=== PATIENT | female | born 1975 | race Caucasian/White ===

== ENCOUNTER 2023-09-09 20:15 | Emergency (ER) | payer OTHER, SELFPAY ==
[2023-09-09 20:19] VITALS: BP 151/101
[2023-09-09 21:49] LABS: COVID-19 Antigen Negative (Negative)
[2023-09-09 21:51] VITALS: BMI 29.0
--- NOTE | 2023-09-09 21:54 | EDRN ---
Pt reports fever that started 09/01 hat lasted 1.5 days, sore throat and chills. Yesterday had a pounding headache that lasted all day. Last took tylenol yesterday
[2023-09-09 22:01] VITALS: BP 138/77
[2023-09-09 22:10] LABS: % Basophils 0.5 % (0-2); % Eosinophils 5.4 % (0-6); % Immature Granulocytes 0.1 % (0-0.5); % Lymphocytes 28.5 % (20.5-51.1); % Monocytes 7.7 % (1.7-9.3); % Neutrophils 57.8 % (42.2-75.2); Absolute Eosinophils 0.5 10^3/uL (0-0.7); Absolute Lymphocytes 2.5 10^3/uL (1.2-3.4); Absolute Monocytes 0.7 10^3/uL (0.1-0.6); Absolute Neutrophils 5.1 10^3/uL (1.4-6.5); Hematocrit 35.4 % (37.0-47.0); Hemoglobin 11.1 g/dL (12.0-16.0); Mean Corp Hgb Conc. 31.4 g/dL (33.0-37.0); Mean Corpuscular Hgb 25.2 pg (27.0-31.0); Mean Corpuscular Volume 80.5 fL (81.0-99.0); Mean Platelet Volume 10.7 fL (7.4-10.4); Nucleated Red Blood Cells % 0 %; Platelet Count 239 10^3/uL (130-400); Red Cell Dist. Width 15.5 % (11.5-14.5); White Blood Cell Count 8.9 10^3/uL (4.8-10.8)
[2023-09-09 22:36] LABS: ALT (SGPT) 20 U/L (0-35); AST (SGOT) 26 U/L (14-36); Albumin 4.5 g/dl (3.5-5.0); Alkaline Phosphatase 72 U/L (38-126); Blood Urea Nitrogen 21 mg/dl (7-17); Calcium 9.4 mg/dl (8.4-10.2); Carbon Dioxide 22 mmol/L (22-30); Chloride 105 mmol/L (98-107); Estimated Creatinine Clearance 72 ml/min; Glucose 108 mg/dl (70-99); Potassium 4.4 mmol/L (3.5-5.1); Sodium 137 mmol/L (135-145); Total Bilirubin 0.2 mg/dl (0.2-1.3); Total Protein 7.2 g/dl (6.3-8.2); eGFR > 60.00
--- NOTE | 2023-09-09 22:48 | ED.GENMED ---
History of Present Illness
General
Chief Complaint: Cold/Flu/URI Symptoms
Source: patient
Exam Limitations: none
Time Seen by Provider: 09/09/23 22:36
Nursing documentation reviewed up to this point in time: agreed with
History of Present Illness
History of Present Illness:
This is a 48-year-old woman with history of migraines who complains of of 5-day history of URI symptoms, primarily sore throat, intermittent dry cough, subjective fever, generalized aches and intermittent headache. She admits to moderate migraine
headache yesterday accompanied with nausea which resolved with a dose of Tylenol and Nurtec ODT. No further headache today but she continues with moderate sore throat, painful swallowing and reports decreased oral intake over the past 5 days and
difficulty sleeping over the past 2 days. Her son had very similar URI symptoms last week.
She denies chest pain or shortness of breath.
Her last dose of Tylenol was yesterday.
She has had intermittent nausea but has had no vomiting, no abdominal pain, no back pain.
No recent travel. She denies rash.
She takes no medicines on a daily basis. Since onset of URI symptoms she has been taking vitamin C, vitamin D, intermittent Tylenol.
She reports no history of asthma nor chronic lung issues.
No history of immunocompromise.
Past History
Past History
ED Past Medical History: HTN (History of preeclampsia), Hypercholesterolemia, Psychiatric (Depression/anxiety) and Other (post Eclampsia, Migraines)
ED Past Surgical History: None
Social History
Tobacco: Non-smoker
Alcohol: None
Drug: None
Personal:
Living: with family
Employment: Not employed (Homemaker)
Family History
Family History: Other (Noncontributory)
Phy Exam
Physical Exam
Physical Exam:
GENERAL: 48-year-old woman appears her stated age, awake and alert, appears in no acute distress, nontoxic in appearance. Easily communicative. Vital signs reviewed. Afebrile. Moderate hypertension noted initially, has improved without
intervention
EYE: pupils equal and reactive. anicteric
NECK: Supple, nontender, no meningismus, no significant adenopathy.
ENT: posterior pharynx is very minimally injected without edema nor exudate nor ulcerations, there is mild clear to pearly postnasal drip noted. Oral mucosa is moist. TM clear b/l, nares have minimally boggy turbinates with scant clear rhinorrhea.
CARDIAC: Regular rate and rhythm. no murmur.
LUNGS: Clear breath sounds bilaterally, no acute respiratory distress, no wheezes/rales/rhonchi
ABDOMEN: Soft, nondistended, without focal tenderness, no r/g, no cvat. normoactive BS.
NEUROLOGICAL: Alert and oriented x3, no focal neuro deficits. Gait is steady.
SKIN: Warm and dry, normal color, skin intact. No rash.
MUSCULOSKELETAL: No C/C/E. peripheral pulses are full and equal b/l. No palpable tenderness.
PSYCH: Normal and appropriate interaction.
Course
Orders/Labs/Results
Orders:
Orders
09/09/23 21:00
COVID-19 Antigen Urgent
Source: Nasal Swab
Influenza A+B Rapid Molecular Urgent
REJI Source: Nasal Swab
Specimen Description:
09/09/23 22:00
Complete Blood Count/With Diff Urgent
09/09/23 22:01
Comprehensive Metabolic Panel Urgent
09/09/23 22:47
0.9% Sodium Chloride 1000 ml [Nss] 1,000 ml IV BOLUS
CR Chest - 2 Views Urgent
Comment:
Reason For Exam: cough, subjective fever
09/09/23 22:48
Ketorolac [Toradol] 30 mg IV NOW STA
09/09/23 22:54
Rapid Strep Group A Urgent
REJI Source: Throat/Pharynx
Specimen Description:
Date Specimen was Collected: 09/09/23
Time Specimen was Collected: 22:51
Abnormal Lab Results
09/09/23 09/09/23
22:00 22:01
Hgb 11.1 L g/dL
(12.0-16.0)
Hct 35.4 L %
(37.0-47.0)
MCV 80.5 L fL
(81.0-99.0)
MCH 25.2 L pg
(27.0-31.0)
MCHC 31.4 L g/dL
(33.0-37.0)
RDW 15.5 H %
(11.5-14.5)
MPV 10.7 H fL
(7.4-10.4)
Absolute Monos (auto) 0.7 H 10^3/uL
(0.1-0.6)
BUN 21 H mg/dl
(7-17)
Glucose 108 H mg/dl
(70-99)
09/09/23 22:00
09/09/23 22:01
Vital Signs
Initial and Last Documented VS:
Initial Vital Signs
Temp Pulse Resp BP Pulse Ox
98.8 F 78 18 151/101 98
09/09/23 20:19 09/09/23 20:19 09/09/23 20:19 09/09/23 20:19 09/09/23 20:19
Last Documented Vital Signs
Temp Pulse Resp BP Pulse Ox
98.7 F 74 16 138/77 99
09/09/23 22:01 09/09/23 22:01 09/09/23 22:01 09/09/23 22:01 09/09/23 22:01
MDM/Problems Addressed
Differential Diagnosis Includes:
Acute URI symptoms appear viral in nature. Must consider occult pneumonia, Strep pharyngitis.
COVID and influenza testing are negative.
Labs are unremarkable, reassuring with normal white blood cell count of 8.9.
Very mild anemia
Chemistries are unremarkable.
Will check rapid strep, chest x-ray.
Will initiate IV fluids and give an IV dose of Toradol for pain
*Radiology
Radiology exam reviewed: preliminary read by ED provider (Chest x-ray is unremarkable. Clear lung conway.)
*Pulse Oximetry
Patient hypoxic: no
*Critical Care Note
Total Time (30-74mins, 75-104mins- exclusive of procedures): Not Applicable
Update Note
Update Note:
09/10/2023 0001 AM
Patient remains afebrile.
Feeling improved after IV Toradol. IV fluids are currently infusing.
Chest x-ray is unremarkable, clear lung conway.
Rapid strep is negative.
I suspect viral URI and recommend continuing with supportive measures, staying well-hydrated on a daily basis, continuing Tylenol as needed for pain, fever.
Warm salt water gargles, humidifier at nighttime, elevating head of bed can also assist with sore throat.
Will add a short course of prednisone.
Prompt follow-up with PCP for recheck.
ED Attending Note
-
Portions of this chart may have been created with voice recognition software.� Occasional wrong word or��sound alike� substitutions may have occurred due to the inherent limitations of voice recognition software.
Discharge Plan
Departure
Patient Disposition: Home (Routine Discharge)
Date of Disposition: 09/10/23
Time of Disposition: 00:02
Patient with high blood pressure during this ER visit?: No
Condition: Good
Discharge Problem:
Upper respiratory infection, viral
Instructions: Viral Upper Respiratory Infection, Adult (DC), Sore Throat - Adult
Prescriptions:
New
prednisone 50 mg tablet
50 mg PO DAILY Qty: 5 0RF
promethazine-DM 6.25-15 mg/5 mL syrup
10 ml PO Q6H PRN (Reason: Cough) Qty: 240 0RF
Referrals:
Brunilda Lucia MD [Family Provider] - Call in 1-3 days for appt
Interventions
Interventions:
*Risk Screen - Suicide Last Done: 09/09/23 20:19
*General Assessment Last Done: 09/09/23 20:19
*Neglect/Abuse Screening Last Done: 09/09/23 20:19
ED- Pulmonary Assessment Last Done: 09/09/23 22:01
Discharge Date and Time
Print Language: SAMI
[2023-09-09] MEDS: NSS 1000 IV (22:51)
[2023-09-09] MEDS: TORADOL 30 MG IV (22:51)
[2023-09-10 00:16] VITALS: BP 136/88
== END 2023-09-10 00:18 | disposition home or self-care (01) ==
LOC: EMR 20:15
PROVIDERS: Emergency Medicine; EMERGENCY PHYSICIAN Emergency Medicine; FAMILY PHYSICIAN Emergency Medicine
DX: J06.9 Acute upper respiratory infection, unspecified (principal); Z11.52 Encounter for screening for COVID-19
CPT/HCPCS: 99284; 96374; 96361; 71046; 80053; 85025; 87070; 87502; 87811; 87880

== ENCOUNTER 2024-02-10 12:44 | Emergency (ER) | payer OTHER, SELFPAY ==
[2024-02-10 12:48] VITALS: BP 130/98
[2024-02-10 13:11] LABS: % Basophils 0.5 % (0-2); % Eosinophils 6.4 % (0-6); % Immature Granulocytes 0.3 % (0-0.5); % Lymphocytes 29.4 % (20.5-51.1); % Monocytes 7.4 % (1.7-9.3); Absolute Eosinophils 0.5 10^3/uL (0-0.7); Absolute Lymphocytes 2.3 10^3/uL (1.2-3.4); Absolute Monocytes 0.6 10^3/uL (0.1-0.6); Absolute Neutrophils 4.5 10^3/uL (1.4-6.5); Hematocrit 35.7 % (37.0-47.0); Hemoglobin 11.2 g/dL (12.0-16.0); Mean Corp Hgb Conc. 31.4 g/dL (33.0-37.0); Mean Corpuscular Hgb 24.7 pg (27.0-31.0); Mean Corpuscular Volume 78.8 fL (81.0-99.0); Mean Platelet Volume 10.4 fL (7.4-10.4); Nucleated Red Blood Cells % 0 %; Platelet Count 281 10^3/uL (130-400); Red Blood Cell Count 4.53 10^6/uL (4.20-5.40); Red Cell Dist. Width 14.6 % (11.5-14.5)
[2024-02-10 13:16] LABS: HCG, Serum Qualitative Screen Negative
[2024-02-10 13:20] LABS: ALT (SGPT) 42 U/L (0-35); AST (SGOT) 31 U/L (14-36); Albumin 4.7 g/dl (3.5-5.0); Alkaline Phosphatase 61 U/L (38-126); Blood Urea Nitrogen 20 mg/dl (7-17); Calcium 9.5 mg/dl (8.4-10.2); Carbon Dioxide 29 mmol/L (22-30); Chloride 100 mmol/L (98-107); Glucose 98 mg/dl (70-99); Potassium 4.5 mmol/L (3.5-5.1); Sodium 138 mmol/L (135-145); Total Bilirubin 0.5 mg/dl (0.2-1.3); Total Protein 7.5 g/dl (6.3-8.2); eGFR > 60.00
[2024-02-10 15:43] VITALS: BP 129/90
--- NOTE | 2024-02-10 17:48 | ED.GENMED ---
History of Present Illness
General
Chief Complaint: Headache
Source: patient
Exam Limitations: none
Time Seen by Provider: 02/10/24 17:10
History of Present Illness
History of Present Illness:
48-year-old female with history of migraines presents with ongoing headache for several days with associated nausea and vomiting. She is light sensitive. This feels like prior migraines. She has been using Excedrin at home without relief. Feels
like her migraines in the past it was not sudden in onset. She denies any associated vision change fever or neck pain. She denies any rash. No other complaints
Past History
Past History
ED Past Medical History: HTN (History of preeclampsia), Hypercholesterolemia, Psychiatric (Depression/anxiety) and Other (post Eclampsia, Migraines)
ED Past Surgical History: None
Social History
Tobacco: Non-smoker
Alcohol: None
Drug: None
Personal:
Living: with family
Employment: Not employed (Homemaker)
Family History
Family History: Other (Noncontributory)
Phy Exam
Physical Exam
Physical Exam:
General: Well-appearing female shielding her eyes from the light lying in a dark room
Heart: Regular rate and rhythm no murmurs
Lungs: Clear no wheeze
Neurologic exam: Alert and oriented pupils equal round reactive to light extraocular's are intact no facial asymmetry equal strength conversing appropriately no meningeal signs
Musculoskeletal exam: No nuchal rigidity
Course
Orders/Labs/Results
Orders:
Orders
02/10/24 12:56
Test Result ONCE
02/10/24 12:57
Complete Blood Count/With Diff Urgent
Comprehensive Metabolic Panel Urgent
HCG, Serum Qualitative Screen Urgent
02/10/24 17:23
0.9% Sodium Chloride 1000 ml [Nss] 1,000 ml IV BOLUS
Diphenhydramine [Benadryl] 25 mg IV NOW STA
Ketorolac [Toradol] 15 mg IV NOW STA
Prochlorperazine [Compazine] 10 mg IV NOW STA
Abnormal Lab Results
02/10/24
12:57
Hgb 11.2 L g/dL
(12.0-16.0)
Hct 35.7 L %
(37.0-47.0)
MCV 78.8 L fL
(81.0-99.0)
MCH 24.7 L pg
(27.0-31.0)
MCHC 31.4 L g/dL
(33.0-37.0)
RDW 14.6 H %
(11.5-14.5)
Eosinophils % 6.4 H %
(0-6)
BUN 20 H mg/dl
(7-17)
ALT 42 H U/L
(0-35)
02/10/24 12:57
02/10/24 12:57
Vital Signs
Initial and Last Documented VS:
Initial Vital Signs
Temp Pulse Resp BP Pulse Ox
98.1 F 78 18 130/98 99
02/10/24 12:48 02/10/24 12:48 02/10/24 12:48 02/10/24 12:48 02/10/24 12:48
Last Documented Vital Signs
Temp Pulse Resp BP Pulse Ox
98.1 F 74 18 129/90 97
02/10/24 12:48 02/10/24 15:43 02/10/24 15:43 02/10/24 15:43 02/10/24 15:43
MDM/Problems Addressed
Differential Diagnosis Includes:
Headache. Differential could include tension versus migraine. She does not describe a sudden onset headache. Do not suspect intracranial hemorrhage. This feels like prior migraines. Will treated as such. Fluids Toradol Compazine Benadryl
ordered. Reviewed labs which are without significant finding.
*Critical Care Note
Total Time (30-74mins, 75-104mins- exclusive of procedures): Not Applicable
Update Note
Update Note:
Feeling better after Toradol fluids and Benadryl. Will discharge home with migraine headache. Recommend follow-up with
ED Attending Note
-
Portions of this chart may have been created with voice recognition software.� Occasional wrong word or��sound alike� substitutions may have occurred due to the inherent limitations of voice recognition software.
Discharge Plan
Departure
Patient Disposition: Home (Routine Discharge)
Date of Disposition: 02/10/24
Time of Disposition: 18:51
Patient with high blood pressure during this ER visit?: No
Discharge Problem:
Migraine
Instructions: Migraines (DC)
Prescriptions:
No Action
prednisone 50 mg tablet
50 mg PO DAILY Qty: 5 0RF
promethazine-DM 6.25-15 mg/5 mL syrup
10 ml PO Q6H PRN (Reason: Cough) Qty: 240 0RF
Referrals:
Brunilda Lucia MD [Family Provider] -
Activity Restrictions/Additional Instructions:
Rest. Drink plenty fluids. Follow-up with your doctor for further evaluation
Interventions
Interventions:
*Risk Screen - Suicide Last Done: 02/10/24 12:48
*General Assessment Last Done: 02/10/24 12:48
*Neglect/Abuse Screening Last Done: 02/10/24 12:48
*ED COVID-19 Vaccine History Last Done: 02/10/24 18:37
NQ-[facility]bdit-[facility] Assessment Last Done: 02/10/24 18:37
ED- Neurological Assessment Last Done: 02/10/24 18:37
Discharge Date and Time
Print Language: ICELANDIC
[2024-02-10] MEDS: NSS 1000 IV (18:21)
[2024-02-10] MEDS: BENADRYL 25 MG IV (18:22)
[2024-02-10] MEDS: TORADOL 15 MG IV (18:22)
[2024-02-10 20:34] VITALS: BP 125/84
== END 2024-02-10 20:55 | disposition home or self-care (01) ==
LOC: EMR 12:44
PROVIDERS: Emergency Medicine; EMERGENCY PHYSICIAN Emergency Medicine; FAMILY PHYSICIAN Emergency Medicine
DX: G43.909 Migraine, unspecified, not intractable, without status migrainosus (principal); R11.2 Nausea with vomiting, unspecified; I10 Essential (primary) hypertension; E78.00 Pure hypercholesterolemia, unspecified
CPT/HCPCS: 99283; 96374; 96375; 96361; 80053; 84703; 85025

== ENCOUNTER → 2024-06-04 12:33 | Outpatient (REF) | payer OTHER, SELFPAY | LOC: MRI 3T 12:33 | PROVIDERS: ATTENDING PHYSICIAN Psychiatry & Neurology Neurology; FAMILY PHYSICIAN Emergency Medicine | DX: G43.719 Chronic migraine without aura, intractable, without status migrainosus (principal) | CPT/HCPCS: 70551 ==

== ENCOUNTER → 2024-06-12 14:17 | Outpatient (REF) | payer OTHER, SELFPAY | LOC: WDC 14:17 | PROVIDERS: ATTENDING PHYSICIAN Family Medicine | DX: Z12.31 Encounter for screening mammogram for malignant neoplasm of breast (principal) | CPT/HCPCS: 77063; 77067 ==

== ENCOUNTER 2024-12-05 06:18 | Day surgery (SDC) | payer OTHER, SELFPAY | END 2024-12-05 12:26 | disposition home or self-care (01) | LOC: GI 06:18 | PROVIDERS: ATTENDING PHYSICIAN Internal Medicine | DX: Z12.11 Encounter for screening for malignant neoplasm of colon (principal); D50.9 Iron deficiency anemia, unspecified; R14.0 Abdominal distension (gaseous); K31.89 Other diseases of stomach and duodenum; K22.89 Other specified disease of esophagus; K63.5 Polyp of colon; K63.89 Other specified diseases of intestine; K29.50 Unspecified chronic gastritis without bleeding; B96.81 Helicobacter pylori [H. pylori] as the cause of diseases classified elsewhere | CPT/HCPCS: 45385; 45380; 43239; 88305; 88342 ==

== ENCOUNTER → 2025-02-23 10:59 | Outpatient (REF) | payer OTHER, SELFPAY | LOC: RCS 10:59 | PROVIDERS: ATTENDING PHYSICIAN Family Medicine | DX: R00.2 Palpitations (principal); I10 Essential (primary) hypertension | CPT/HCPCS: 93225; 93226 ==